=== PATIENT | female | born 1995 | race Caucasian/White ===

== ENCOUNTER 2023-02-21 11:34 | Outpatient (CLI) | payer MEDICAID, OTHER ==
[2023-02-21 13:22] LABS: #Eosinphils 0.1 10x3/uL (0.0-0.5); #Monocytes 0.3 10x3/uL (0.0-1.1); #Neutrophils 4.6 10x3/uL (1.5-8.4); %Basophils 0.4 % (0.0-2.0); %Eosinophils 1.6 % (0.0-6.0); %Lymphocytes 24.5 % (18.0-47.0); %Neutrophils 68.2 % (40.0-75.0); Hematocrit 45.4 % (34.9-44.5); Mean Corpuscular Hemoglobin 29.4 pg (27.0-33.0); Mean Platelet Volume 11.3 fl (7.4-10.4); Platelet Count 255 10x3/uL (150-450); RBC Distribution Width 11.9 % (11.5-14.5); White Blood Cell (WBC) Count 6.8 10x3/uL (3.5-10.5)
[2023-02-21 13:23] LABS: BHCG - Serum Negative (NEGATIVE); Pregs Control Background? CLEAR/WHITE (CLR/WHITE); Pregs Control Bar Appear? YES (CONTROL BAR)
[2023-02-21 13:30] LABS: Anion Gap 16 mmol/L (10-20); BUN (Urea Nitrogen) 8 mg/dL (7.0-18.7); Calc. Creatinine Clearance 0 mL/min (70-130); Calcium 9.5 mg/dL (7.8-10.44); Carbon Dioxide 23 mmol/L (22-29); Chloride 106 mmol/L (98-107); Estimated GFR 124; Glucose 140 mg/dL (70-105); Potassium 4.1 mmol/L (3.5-5.1); Sodium 141 mmol/L (136-145)
== END 2023-02-21 11:35 | disposition home or self-care (01) ==
LOC: LABBT 11:34
PROVIDERS: ATTEND Surgery
DX: Z01.812 Encounter for preprocedural laboratory examination (principal); K60.3 Anal fistula
CPT/HCPCS: 80048; 84703; 85025

== ENCOUNTER 2023-02-25 11:20 | Day surgery (SDC) | payer OTHER ==
[2023-02-22 14:11] VITALS: BMI 31.2
[2023-02-25] MEDS ORDERED: HYDROmorphone 0.5 MG/0.5 ML SYRINGE ONE (13:46)
[2023-02-25] MEDS ORDERED: Midazolam HCl 2 mg/2 ml Vial ONE (13:46)
[2023-02-25] MEDS ORDERED: fentaNYL PF 100 MCG/2 ML SYRINGE ONE (13:46)
[2023-02-25] MEDS ORDERED: Bupivacaine 0.25% HCL 30 ML VIAL ONE (13:49)
[2023-02-25] MEDS ORDERED: EPINEPHrine 1 MG/ML VIAL ONE (13:49)
[2023-02-25] MEDS ORDERED: Lidocaine 2% PF 5 ML VIAL ONE (13:49)
[2023-02-25] MEDS ORDERED: cefOXitin 2 GM VIAL ONE (14:03)
[2023-02-25] MEDS ORDERED: Sodium Chloride 0.9% 100 ML ONE (14:03)
[2023-02-25] MEDS ORDERED: Ondansetron PF 4 MG/2 ML Vial ONE (14:13)
[2023-02-25] MEDS ORDERED: PROPOFOL 200 MG/20 ML VIAL ONE (14:13)
[2023-02-25] MEDS ORDERED: Dexamethasone 20 MG/5 ML VIAL ONE (14:13)
[2023-02-25] MEDS ORDERED: Lidocaine 1% PF 5 ML VIAL ONE (14:13)
== END 2023-02-25 16:36 | disposition home or self-care (01) ==
LOC: SDC 11:20
PROVIDERS: ATTEND Surgery
PROC: 0JBB0ZZ Excision of Perineum Subcutaneous Tissue and Fascia, Open Approach (ICD-10-PCS; principal; 2023-02-25)
DX: K60.3 Anal fistula (principal)
CPT/HCPCS: J0171; J0694; J1100; J1170; J2001; J2250; J2405; J2704; J3490; S0020

== ENCOUNTER 2023-11-14 08:15 | Outpatient (CLI) | payer OTHER ==
[2023-11-14 11:19] LABS: BHCG - Serum Negative (NEGATIVE); Pregs Control Background? CLEAR/WHITE (CLR/WHITE); Pregs Control Bar Appear? YES (CONTROL BAR)
== END 2023-11-14 08:16 | disposition home or self-care (01) ==
LOC: BICRAD 08:15
PROVIDERS: ATTEND Student in an Organized Health Care Education/Training Program
DX: M06.4 Inflammatory polyarthropathy (principal)
CPT/HCPCS: 36415; 72202; 84703